=== PATIENT | male | born 1985 | race Caucasian/White ===

== ENCOUNTER 2016-05-10 07:51 | Emergency (ER) | payer SELFPAY ==
[2016-05-10] MEDS ORDERED: Sulfameth/Trimethoprim DS 800-160mg TAB ONE (08:17)
[2016-05-10] MEDS ORDERED: methylPREDNISolone Acetate 40 mg/ml Vial ONE (08:17)
== END 2016-05-10 08:35 | disposition home or self-care (01) ==
LOC: BURERS 07:51
DX: L03.114 Cellulitis of left upper limb (principal); T78.40XA Allergy, unspecified, initial encounter; F17.210 Nicotine dependence, cigarettes, uncomplicated
CPT/HCPCS: 96372; J1030